=== PATIENT | female | born 1970 | race Caucasian/White ===

== ENCOUNTER 2017-11-05 08:37 | Day surgery (SDC) | payer BC, OTHER ==
[2017-11-05] VITALS (9 sets, daily range): BP systolic 111–131; BP diastolic 66–79; PULSE 69–79; TEMP 98.4–98.7
[~2017-11-05] VITALS: Ht 139.7 cm; Wt 91.1 kg
[2017-11-05] MEDS ORDERED: LOPRESSOR 225 MG/TAB PO (08:55)
[2017-11-05] MEDS ORDERED: ASPIRIN 81M81 MG/TA2 PO (08:55)
[2017-11-05] MEDS ORDERED: LIPITOR20 MG PO (08:56)
[2017-11-05] MEDS ORDERED: GLUCOPHAGE1000 MG PO (08:59)
[2017-11-05 09:43] LABS: MEAN CELL VOLUME 90 fl (80.0-100.0); MEAN CORPUSCULAR HEMOGLOBIN 30 pg (27.0-31.0); MEAN CORPUSCULAR HGB CONC 33 g/dl (33.0-37.0); PLATELET COUNT 311 K/mm3 (130-400); RED BLOOD COUNT 4.68 M/mm3 (4.10-5.30)
[2017-11-05 09:48] LABS: INR 1.1 (0.8-3.0); PROTHROMBIN TIME 12.2 SECONDS (9.7-12.8)
[2017-11-05 09:54] LABS: CALCIUM 9.1 mg/dL (8.4-10.2); CREATININE, serum 0.57 mg/dL (0.52-1.25); POTASSIUM 4.1 mmol/L (3.4-5.0)
== END 2017-11-05 15:15 | disposition home or self-care (01) ==
LOC: COL.CAR 08:37
PROVIDERS: Internal Medicine Interventional Cardiology
DX: R07.9 Chest pain, unspecified (principal); R94.39 Abnormal result of other cardiovascular function study; I10 Essential (primary) hypertension; Z79.84 Long term (current) use of oral hypoglycemic drugs; Z82.49 Family history of ischemic heart disease and other diseases of the circulatory system
CPT/HCPCS: J2250; J3010; Q9967

== ENCOUNTER → 2018-05-23 | Outpatient (CLI) | payer BC, OTHER ==
[~2018-05-23] MED LIST: ASPIRIN 81M81 MG/TA2 PO; GLUCOPHAGE1000 MG PO; LIPITOR20 MG PO; LOPRESSOR 225 MG/TAB PO
== END ==
LOC: COL.RAD 12:30
DX: E04.1 Nontoxic single thyroid nodule (principal)

== ENCOUNTER → 2018-06-06 | Outpatient (CLI) | payer BC, OTHER | LOC: MC.RAD 13:58 | DX: Z12.31 Encounter for screening mammogram for malignant neoplasm of breast (principal) ==

== ENCOUNTER → 2018-06-30 | Outpatient (CLI) | payer BC, OTHER | LOC: COL.RAD 06-23 07:30 | DX: R06.02 Shortness of breath (principal); R05 Cough ==

== ENCOUNTER → 2018-07-13 | Outpatient (CLI) | payer BC, OTHER | LOC: COL.RAD 12:57 | DX: J18.1 Lobar pneumonia, unspecified organism (principal); R59.0 Localized enlarged lymph nodes; K76.0 Fatty (change of) liver, not elsewhere classified; K76.89 Other specified diseases of liver | CPT/HCPCS: Q9967 ==

== ENCOUNTER → 2018-08-23 | Outpatient (CLI) | payer BC, OTHER | LOC: COL.RAD 11:15 | DX: T17.308A Unspecified foreign body in larynx causing other injury, initial encounter (principal); K29.70 Gastritis, unspecified, without bleeding; K76.0 Fatty (change of) liver, not elsewhere classified; K59.00 Constipation, unspecified; Z80.0 Family history of malignant neoplasm of digestive organs ==